=== PATIENT | female | born 1930 | race Hispanic/Latino ===

== ENCOUNTER 2021-04-05 09:38 | Inpatient (IN) | payer OTHER ==
[~2021-04-05] VITALS: Ht 144.8 cm; Wt 46.1 kg
[~2021-04-05 09:38] MED LIST: AMLO10TA4 PO; ASPI-556 PO; DONE10TA8 PO; FENO145T PO; IRON1CAP32 PO; LOSA100T2 PO; OXYB5 PO; SERT50TA PO
[2021-04-05 10:49] LABS: BASOPHILS % (AUTO) 0.2 % (0.0-5.0); HEMATOCRIT 24.2 % (36-48); LYMPHOCYTES % (AUTO) 12.9 % (21.0-51.0); MEAN CORPUSCULAR HGB CONC 33.5 g/dL (32.0-36.0); MEAN CORPUSCULAR VOLUME 89.6 fL (79-99); MONOCYTES % (AUTO) 5.8 % (3.0-13.0); NEUTROPHILS % (AUTO) 80.9 % (40.0-77.0); PLATELET COUNT (AUTO) 200 K/uL (130-400); RED CELL DISTRIBUTION WIDTH 19.4 % (11.0-15.5); WHITE BLOOD COUNT (AUTO) 4.8 K/uL (4.8-10.8)
[2021-04-05 10:59] LABS: CREATININE 1.5 mg/dL (0.5-1.5); POTASSIUM 3.7 mmol/L (3.5-5.1)
[2021-04-05] MEDS ORDERED: ACETAMINOPHEN 500 MG TABLET PO ONE (11:00)
[2021-04-05] MEDS ORDERED: 0.9%NACL 1000ML 1,000 ML IV ONE ×3 (11:00→18:09)
[2021-04-05 11:04] LABS: BILIRUBIN,TOTAL 0.9 mg/dL (0.2-1.0); TOTAL PROTEIN, SERUM 6.4 g/dL (6.0-8.3)
[2021-04-05] MEDS ORDERED: ASPIRIN 325MG TAB PO ONE (12:30)
[2021-04-05 12:34] LABS: APPEARANCE,URINE Clear (CLEAR); BILIRUBIN,URINE Negative (NEGATIVE); COLOR,URINE Dark Yellow (YELLOW); GLUCOSE, URINE (UA) Negative (NEGATIVE); KETONES,URINE Negative (NEGATIVE); LEUKOCYTE ESTERASE ,URINE Trace (NEGATIVE); NITRATE,URINE Negative (NEGATIVE); OCCULT BLOOD,URINE Negative (NEGATIVE); PROTEIN,URINE Trace mg/dL (NEGATIVE)
[2021-04-05 12:52] LABS: BACTERIA,URINE None Seen /HPF (None Seen); CALCIUM OXALATE CRYSTALS,UR Few /LPF (None Seen); RBC,URINE 0-1 /HPF (0-1); SQUAMOUS EPITHELIAL CELL,UR 0-2 /HPF (0-2); WBC,URINE 0-1 /HPF (0-1)
[2021-04-05] MEDS ORDERED: MEMA10TA55 PO (14:07)
[2021-04-05] MEDS ORDERED: NIFE-39 PO (14:07)
[2021-04-05] MEDS ORDERED: FENO145T26 PO (14:07)
[2021-04-05] MEDS ORDERED: HYDR100T27 PO (14:07)
[2021-04-05] MEDS ORDERED: LOSA50TA64 PO (14:07)
[2021-04-05] MEDS ORDERED: SERT-438 PO (14:07)
[2021-04-05] MEDS ORDERED: [UNRECOGNIZED DRUG - CODE] IJ (14:08)
[2021-04-05] MEDS ORDERED: LEVO25CA4 PO (14:08)
[2021-04-05] MEDS ORDERED: CALC1TAB93 PO (14:08)
[2021-04-05] MEDS ORDERED: CLON0.2T PO (14:22)
[2021-04-05] MEDS ORDERED: HYDROCODONE/ACETAMINOPHEN 5/325 MG TAB PO PRN (15:00)
[2021-04-05] MEDS ORDERED: METOPROLOL TARTRATE 1 MG/ML 5ML VIAL IV PRN (15:00)
[2021-04-05] MEDS ORDERED: CLONIDINE HCL 0.1 MG TABLET PO PRN (15:00)
[2021-04-05] MEDS ORDERED: LACTULOSE 20 GM/30 ML UDCUP PO PRN (15:00)
[2021-04-05] MEDS ORDERED: HYDRALAZINE 20MG/ML VIAL IV PRN (15:00)
[2021-04-05] MEDS ORDERED: ACETAMINOPHEN 325 MG TAB PO PRN ×2 (15:00)
[2021-04-05] MEDS ORDERED: ONDANSETRON 4MG INJ IVP PRN (15:00)
[2021-04-05] MEDS ORDERED: 0.9%NACL 1000ML 1,000 ML IV SCH (15:30)
[2021-04-05] MEDS ORDERED: ASPIRIN 325MG TAB ONE (16:13)
[2021-04-05] MEDS: CEFTRIAXONE 2GM VIAL IVP SCH (18:31)
[2021-04-05] MEDS: HYDRALAZINE 25MG TABLET PO SCH (20:41)
[2021-04-05] MEDS: CLONIDINE HCL 0.2 MG TABLET PO SCH (20:42)
[2021-04-05] MEDS: MEMANTINE HCL 5 MG TABLET PO SCH (20:42)
[2021-04-05 20:55] VITALS: BP 179/66
[2021-04-05] MEDS: C NO 9 PO SCH (21:00)
[2021-04-05] MEDS: VIT B PO SCH (21:00)
[2021-04-05] MEDS: [UNRECOGNIZED DRUG - OTHER] PO SCH (21:00)
[2021-04-05] MEDS: IRON FUM PO SCH (21:00)
[2021-04-05] MEDS: LOSARTAN 100 MG TABLET PO SCH (21:51)
[2021-04-06] VITALS: BP 112/40
[2021-04-06 04:00] VITALS: BP 156/55
[2021-04-06 04:38] LABS: MEAN CORPUSCULAR HEMOGLOBIN 30.4 pg (27.0-33.0); MEAN CORPUSCULAR VOLUME 89.5 fL (79-99); PLATELET COUNT (AUTO) 130 K/uL (130-400); RED BLOOD CELL COUNT(AUTO) 1.81 MIL/uL (4.00-5.50); RED CELL DISTRIBUTION WIDTH 19.8 % (11.0-15.5); WHITE BLOOD COUNT (AUTO) 3.3 K/uL (4.8-10.8)
[2021-04-06 04:42] LABS: HEMATOCRIT 16.2 % (36-48)
[2021-04-06 05:12] LABS: CREATININE 1.3 mg/dL (0.5-1.5); MAGNESIUM 1.5 mg/dL (1.80-2.40); PHOSPHORUS 2.4 mg/dL (2.5-4.9); POTASSIUM 3.8 mmol/L (3.5-5.1); THYROID STIMULATING HORMONE 2.8 uIU/mL (0.36-3.74)
[2021-04-06] MEDS: NIFEDIPINE ER 30 MG TAB PO SCH (07:30)
[2021-04-06 08:12] VITALS: BP 156/52
[2021-04-06] MEDS ORDERED: AMLODIPINE 5 MG TAB PO SCH (09:00)
[2021-04-06] MEDS: C NO 9 PO SCH (09:00)
[2021-04-06] MEDS: VIT B PO SCH (09:00)
[2021-04-06] MEDS: IRON FUM PO SCH (09:00)
[2021-04-06] MEDS: [UNRECOGNIZED DRUG - OTHER] PO SCH (09:00)
[2021-04-06] MEDS ORDERED: DONEPEZIL HCL 5 MG TAB PO SCH (09:00)
[2021-04-06] MEDS ORDERED: FENOFIBRATE NANOCRYSTALLIZED 145 MG TAB PO SCH (09:00)
[2021-04-06] MEDS ORDERED: ENOXAPARIN SODIUM 30 MG/0.3 ML SQ SCH (09:00)
[2021-04-06] MEDS: FENOFIBRATE NANOCRYSTALLIZED 145 MG TAB PO SCH (09:08)
[2021-04-06] MEDS: OXYBUTYNIN CHLORIDE 5 MG TABLET PO SCH (09:08)
[2021-04-06] MEDS: CA 600MG+VIT D 400 UNIT TAB 1 TAB TABLET PO SCH (09:08)
[2021-04-06] MEDS: ASPIRIN 81 MG EC TAB PO SCH (09:08)
[2021-04-06] MEDS: LOSARTAN 50 MG TABLET PO SCH (09:09)
[2021-04-06] MEDS: FAMOTIDINE 20MG TAB PO SCH (09:09)
[2021-04-06] MEDS: SERTRALINE HCL 50 MG TABLET PO SCH (09:10)
[2021-04-06] MEDS: MEMANTINE HCL 5 MG TABLET PO SCH ×2 (09:10→21:59)
[2021-04-06] MEDS: HYDRALAZINE 25MG TABLET PO SCH ×2 (09:11→22:00)
[2021-04-06] MEDS ORDERED: LEVOTHYROXINE 25 MCG TABLET ONE (09:28)
[2021-04-06] MEDS: LEVOTHYROXINE 25 MCG TABLET PO SCH (09:34)
[2021-04-06 11:39] VITALS: BP 166/55
[2021-04-06 14:01] LABS: HEMATOCRIT 20.2 % (36-48)
[2021-04-06] MEDS: CLONIDINE HCL 0.2 MG TABLET PO SCH ×2 (14:04→21:59)
[2021-04-06] MEDS ORDERED: MAGNESIUM 2GM PREMIX 50ML 50 ML IV SCH (16:00)
[2021-04-06 17:07] VITALS: BP 120/44
[2021-04-06 18:06] LABS: INR 1.27 (0.85-1.15); PROTHROMBIN TIME 13.5 SEC (9.6-11.6)
[2021-04-06] MEDS: CEFTRIAXONE 2GM VIAL IVP SCH (19:31)
[2021-04-06 20:00] VITALS: BP 142/72
[2021-04-06] MEDS: LOSARTAN 100 MG TABLET PO SCH (21:59)
[2021-04-06] MEDS: PANTOPRAZOLE 40 MG/VIAL IV SCH (21:59)
[2021-04-07] VITALS: BP 115/42
[2021-04-07 04:00] VITALS: BP 136/48
[2021-04-07 04:53] LABS: MEAN CORPUSCULAR HEMOGLOBIN 30.1 pg (27.0-33.0); MEAN CORPUSCULAR VOLUME 88.5 fL (79-99); PLATELET COUNT (AUTO) 117 K/uL (130-400); RED BLOOD CELL COUNT(AUTO) 2.26 MIL/uL (4.00-5.50); WHITE BLOOD COUNT (AUTO) 2.6 K/uL (4.8-10.8)
[2021-04-07 05:05] LABS: CREATININE 1.3 mg/dL (0.5-1.5); INR 1.21 (0.85-1.15); MAGNESIUM 2.1 mg/dL (1.80-2.40); PHOSPHORUS 2.3 mg/dL (2.5-4.9); POTASSIUM 3.5 mmol/L (3.5-5.1)
[2021-04-07 05:25] LABS: BAND NEUTROPHILS % (MANUAL) 3 % (0-2); BASOPHILS % (MANUAL) 1 % (0-2); EOSINOPHILS % (MANUAL) 3 % (1-6); LYMPHOCYTES % (MANUAL) 26 % (22-44); MAN.DIFF COMMENT-IMPRESSION MANUAL DIFFERENTIAL; MONOCYTES % (MANUAL) 5 % (2-9); REACTIVE LYMPHOCYTES 2 % (0-0); SEGMENTED NEUTROPHILS % 60 % (40-70)
[2021-04-07 05:28] LABS: PLATELET MORPHOLOGY COMMENT ADEQUATE
[2021-04-07 08:24] VITALS: BP 145/45
[2021-04-07] MEDS: CA 600MG+VIT D 400 UNIT TAB 1 TAB TABLET PO SCH (08:55)
[2021-04-07] MEDS: HYDRALAZINE 25MG TABLET PO SCH ×2 (08:56→22:07)
[2021-04-07] MEDS: FENOFIBRATE NANOCRYSTALLIZED 145 MG TAB PO SCH (08:56)
[2021-04-07] MEDS: MEMANTINE HCL 5 MG TABLET PO SCH ×2 (08:57→22:06)
[2021-04-07] MEDS: FAMOTIDINE 20MG TAB PO SCH (08:57)
[2021-04-07] MEDS: LOSARTAN 50 MG TABLET PO SCH (08:57)
[2021-04-07] MEDS: OXYBUTYNIN CHLORIDE 5 MG TABLET PO SCH (08:57)
[2021-04-07] MEDS: SERTRALINE HCL 50 MG TABLET PO SCH (08:57)
[2021-04-07] MEDS: ASPIRIN 81 MG EC TAB PO SCH (08:57)
[2021-04-07] MEDS: NIFEDIPINE ER 30 MG TAB PO SCH (08:58)
[2021-04-07] MEDS: PANTOPRAZOLE 40 MG/VIAL IV SCH ×2 (08:58→22:07)
[2021-04-07 10:08] LABS: HEMATOCRIT 27.5 % (36-48)
[2021-04-07 11:04] VITALS: BP 137/54
[2021-04-07] MEDS: CLONIDINE HCL 0.2 MG TABLET PO SCH ×2 (11:49→21:00)
[2021-04-07] MEDS: DOCUSATE SODIUM 100 MG CAP PO SCH ×2 (16:03→22:07)
[2021-04-07 16:12] VITALS: BP 114/45
[2021-04-07] MEDS: CEFTRIAXONE 2GM VIAL IVP SCH (19:41)
[2021-04-07 20:00] VITALS: BP 143/51
[2021-04-07 22:04] LABS: HEMATOCRIT 25.3 % (36-48)
[2021-04-07] MEDS: LACTULOSE 20 GM/30 ML UDCUP PO SCH (22:07)
[2021-04-08] VITALS: BP 148/53
[2021-04-08] MEDS: LOSARTAN 100 MG TABLET PO SCH ×2 (02:12→20:16)
[2021-04-08 04:00] VITALS: BP 152/55
[2021-04-08 04:49] LABS: HEMATOCRIT 26.2 % (36-48); MEAN CORPUSCULAR HEMOGLOBIN 30.4 pg (27.0-33.0); MEAN CORPUSCULAR HGB CONC 34.7 g/dL (32.0-36.0); MEAN CORPUSCULAR VOLUME 87.6 fL (79-99); RED BLOOD CELL COUNT(AUTO) 2.99 MIL/uL (4.00-5.50); RED CELL DISTRIBUTION WIDTH 18.3 % (11.0-15.5)
[2021-04-08 05:08] LABS: CREATININE 1.3 mg/dL (0.5-1.5); PHOSPHORUS 2.4 mg/dL (2.5-4.9); POTASSIUM 3.4 mmol/L (3.5-5.1)
[2021-04-08] MEDS: LEVOTHYROXINE 25 MCG TABLET PO SCH (05:57)
[2021-04-08 07:57] VITALS: BP 181/64
[2021-04-08] MEDS: FENOFIBRATE NANOCRYSTALLIZED 145 MG TAB PO SCH (07:57)
[2021-04-08] MEDS: ASPIRIN 81 MG EC TAB PO SCH (07:58)
[2021-04-08] MEDS: HYDRALAZINE 25MG TABLET PO SCH ×2 (07:58→20:16)
[2021-04-08] MEDS: LOSARTAN 50 MG TABLET PO SCH (07:58)
[2021-04-08] MEDS: SERTRALINE HCL 50 MG TABLET PO SCH (07:58)
[2021-04-08] MEDS: OXYBUTYNIN CHLORIDE 5 MG TABLET PO SCH (07:58)
[2021-04-08] MEDS: CA 600MG+VIT D 400 UNIT TAB 1 TAB TABLET PO SCH (07:58)
[2021-04-08] MEDS: DOCUSATE SODIUM 100 MG CAP PO SCH ×2 (07:58→20:15)
[2021-04-08] MEDS: CLONIDINE HCL 0.2 MG TABLET PO SCH ×2 (07:59→20:16)
[2021-04-08] MEDS: NIFEDIPINE ER 30 MG TAB PO SCH (07:59)
[2021-04-08] MEDS: MEMANTINE HCL 5 MG TABLET PO SCH ×2 (07:59→20:16)
[2021-04-08] MEDS: LACTULOSE 20 GM/30 ML UDCUP PO SCH ×2 (07:59→20:16)
[2021-04-08] MEDS: PANTOPRAZOLE 40 MG/VIAL IV SCH ×2 (08:00→20:16)
[2021-04-08 10:11] LABS: HEMATOCRIT 29.2 % (36-48)
[2021-04-08 11:51] VITALS: BP 161/74
[2021-04-08 15:50] LABS: HEMATOCRIT 26.2 % (36-48)
[2021-04-08 16:00] VITALS: BP 166/56
[2021-04-08] MEDS: CEFTRIAXONE 2GM VIAL IVP SCH (18:00)
[2021-04-08 20:00] VITALS: BP 144/58
[2021-04-08 21:36] LABS: HEMATOCRIT 25.3 % (36-48)
[2021-04-09] VITALS: BP 130/51
[2021-04-09 04:00] VITALS: BP 134/48
[2021-04-09] MEDS: LEVOTHYROXINE 25 MCG TABLET PO SCH (06:20)
[2021-04-09 08:00] VITALS: BP 151/55
[2021-04-09] MEDS: LACTULOSE 20 GM/30 ML UDCUP PO SCH (09:00)
[2021-04-09] MEDS: FENOFIBRATE NANOCRYSTALLIZED 145 MG TAB PO SCH (09:37)
[2021-04-09] MEDS: DOCUSATE SODIUM 100 MG CAP PO SCH (09:37)
[2021-04-09] MEDS: ASPIRIN 81 MG EC TAB PO SCH (09:37)
[2021-04-09] MEDS: CLONIDINE HCL 0.2 MG TABLET PO SCH (09:37)
[2021-04-09] MEDS: SERTRALINE HCL 50 MG TABLET PO SCH (09:37)
[2021-04-09] MEDS: OXYBUTYNIN CHLORIDE 5 MG TABLET PO SCH (09:37)
[2021-04-09] MEDS: CA 600MG+VIT D 400 UNIT TAB 1 TAB TABLET PO SCH (09:37)
[2021-04-09] MEDS: MEMANTINE HCL 5 MG TABLET PO SCH (09:37)
[2021-04-09] MEDS: LOSARTAN 50 MG TABLET PO SCH (09:37)
[2021-04-09] MEDS: PANTOPRAZOLE 40 MG/VIAL IV SCH (09:38)
[2021-04-09] MEDS: HYDRALAZINE 25MG TABLET PO SCH (09:38)
[2021-04-09 11:45] VITALS: BP 113/43
[2021-05-05] MEDS ORDERED: EPOETIN ALFA-EPBX (ESRD) 10,000 UNIT/ML VIAL IJ SCH (09:00)
== END 2021-04-09 15:30 | disposition hospice, home (50) | DRG 305 ==
LOC: EDH 09:38 → OBSVTOIN 13:13 → EDHIP 13:13 → UNDOADMOB 13:33 → EDHIP 13:33 → 3DH 20:36
PROVIDERS: ADMIT Internal Medicine Critical Care Medicine; ATTEND Internal Medicine Critical Care Medicine
PROC: 30233N1 Transfusion of Nonautologous Red Blood Cells into Peripheral Vein, Percutaneous Approach (ICD-10-PCS; principal; 2021-04-06)
DX: I16.1 Hypertensive emergency (principal); N39.0 Urinary tract infection, site not specified; S00.93XA Contusion of unspecified part of head, initial encounter; D64.9 Anemia, unspecified; R77.8 Other specified abnormalities of plasma proteins; E03.9 Hypothyroidism, unspecified; F03.90 Unspecified dementia, unspecified severity, without behavioral disturbance, psychotic disturbance, mood disturbance, and anxiety; Z66 Do not resuscitate; K59.00 Constipation, unspecified; I10 Essential (primary) hypertension; W18.30XA Fall on same level, unspecified, initial encounter; Y93.89 Activity, other specified; Y92.098 Other place in other non-institutional residence as the place of occurrence of the external cause; Y99.8 Other external cause status
CPT/HCPCS: 36415; 36430; 70450; 71045; 72125; 72131; 72170; 73552; 80048; 80053; 81001; 82270; 83735; 84100; 84443; 84484; 85014; 85018; 85025; 85027; 85610; 86850; 86900; 86901; 86923; 87040; 87077; 87186; 93005; 97039; 99291; C9113; G0378; J0696; J1650; J3475; J7030; P9016